=== PATIENT | female | born 1960 | race Caucasian/White ===

== ENCOUNTER 2021-10-24 12:33 | Outpatient (REF) | payer MEDICAID, SELFPAY ==
--- NOTE | 2021-10-24 11:35 | ORMUBX_PTH ---
PATIENT: Violet Thomson LOC: [facility] U#:[id number] AGE/SX: 61/F ROOM: RE10/24/[address]: JOHANNA Thao : 1960 BED: DIS: 10/24/2021 SPEC #: [id number] RECD: 10/24/21 18:17 STATUS: NIRU REQ #: [id number] JOSE RAUL: 10/24/21 11:[address]: José Miguel Luna DEPT: Surgical Specimen RECD BY: Sheri Gutiérrez ENTERED: 10/24/21 18:18 SP TYPE: ORMUBX OTHR DR: Angela Petersen Tissues: 1 - MUCOSA, NOS Procedures: GROSS AND MICRO LEVEL 4 Comments: [id number]
== END 2021-10-24 12:34 | disposition home or self-care (01) ==
LOC: LBN 12:33
PROVIDERS: PCP General Practice; Visit Provider Physician Assistant
DX: K13.5 Oral submucous fibrosis (principal)
CPT/HCPCS: 88305

== ENCOUNTER 2022-02-20 11:16 | Outpatient (CLI) | payer MEDICAID, SELFPAY ==
--- NOTE | 2022-02-20 11:15 | RT.EKG_ITS ---
APPROVED REPORT Exam: Resting ECG Reason for Exam: CAD, HTN Patient Location: O HR:74 bpm ECG Measurements Heart Rate 74 AXIS MD 152 P 47 QRSd 88 QRS 41 QT 405 T 26 QTc 450 Conclusion Sinus rhythm...normal P axis, V-rate 50- 99 Low voltage, precordial leads...precordial leads <1.0mV Baseline wander in lead(s) II,III,aVF Otherwise normal
== END 2022-02-20 11:17 | disposition home or self-care (01) ==
LOC: DI.CARD 11:16
PROVIDERS: PCP Neuromusculoskeletal Medicine & OMM; Visit Provider Internal Medicine Cardiovascular Disease
DX: I10 Essential (primary) hypertension (principal); I65.23 Occlusion and stenosis of bilateral carotid arteries
CPT/HCPCS: 93010